=== PATIENT | female | born 1985 | race Hispanic/Latino ===

== ENCOUNTER 2016-08-23 04:00 | Emergency (ER) | payer MEDICAID ==
[2016-08-23 04:31] VITALS: BP 150/92; PULSE 72; RESP 20; TEMP 98.2; O2SAT 95
--- NOTE | 2016-08-23 05:09 | C.PDOC ---
History Of Present Illness 30 year old female presents to the ED with complaints of a sore throat, cough, body aches, and bilateral ear pain for the past 2 weeks. Patient was seen in the clinic and diagnosed with a throat infection, told likely viral, and was given antibiotics and Prednisone. Patient states she did not take the Prednisone and still has a cough with phlegm and sore throat. Denies fever, chills, SOB, chest pain, or any other complaints at this time. Time Seen by Provider: 08/23/16 04:28 Chief Complaint (Nursing): ENT Problem History Per: Patient History/Exam Limitations: no limitations Onset/Duration Of Symptoms: Days Current Symptoms Are (Timing): Still Present Location Of Pain: Throat Associated Symptoms: Sore Throat, Cough Ear Symptoms: Bilateral: None Severity: Mild Past Medical History Reviewed: Historical Data, Nursing Documentation, Vital Signs Vital Signs: Last Vital Signs Temp 98.2 F 08/23/16 04:18 Pulse 72 08/23/16 04:18 Resp 20 08/23/16 04:18 BP 150/92 H 08/23/16 04:18 Pulse Ox 95 08/24/16 05:46 - Medical History PMH: No Chronic Diseases Family History: States: Unknown Family Hx - Social History Hx Alcohol Use: Yes Hx Substance Use: No Review Of Systems Except As Marked, All Systems Reviewed And Found Negative. Constitutional: Negative for: Fever, Chills ENT: Positive for: Throat Pain. Negative for: Ear Pain Cardiovascular: Negative for: Chest Pain Respiratory: Positive for: Cough, Sputum. Negative for: Shortness of Breath Physical Exam - Physical Exam Appears: Non-toxic, No Acute Distress Skin: Normal Color, Warm, Dry, No Rash Head: Atraumatic, Normacephalic Eye(s): bilateral: Normal Inspection Ear(s): Bilateral: Normal Oral Mucosa: Moist Throat: Normal, No Erythema, No Exudate Neck: Normal ROM, Supple Lymphatic: No Adenopathy Chest: Symmetrical, No Deformity Cardiovascular: Rhythm Regular Respiratory: Normal Breath Sounds, No Accessory Muscle Use, No Rales, No Rhonchi , No Wheezing Extremity: Normal ROM Neurological/Psych: Oriented x3, Normal Speech, Normal Cognition ED Course And Treatment O2 Sat by Pulse Oximetry: 95 (Room air) Pulse Ox Interpretation: Normal Medical Decision Making Medical Decision Making: Plan: -Claritin -Toradol Rx given and patient advised to follow up with her PMD in 1-2 days. Disposition - Disposition Referrals: [facility] [Outside] Disposition: HOME/ ROUTINE Disposition Time: 05:07 Condition: GOOD Additional Instructions: Follow up with the medical doctor within 1-2 days without fail. Prescriptions: Loratadine [Claritin] 10 mg PO DAILY #10 tab Ibuprofen [Motrin Tab] 800 mg PO TID #20 tab Instructions: Viral Syndrome (ED) - Clinical Impression Clinical Impression: Viral pharyngitis - PA / ACCOUNTS RECEIVABLE ASSOCIATE / Resident Statement MD/DO has reviewed & agrees with the documentation as recorded. - Scribe Statement The provider has reviewed the documentation as recorded by the Scribe Princess Stearns. All medical record entries made by the Scribe were at my direction and personally dictated by me. I have reviewed the chart and agree that the record accurately reflects my personal performance of the history, physical exam, medical decision making, and the department course for this patient. I have also personally directed, reviewed, and agree with the discharge instructions and disposition.
== END 2016-08-23 05:20 | disposition home or self-care (01) ==
LOC: C.ER 04:00
DX: J02.8 Acute pharyngitis due to other specified organisms (principal)
CPT/HCPCS: 96372; 99283; J1885